=== PATIENT | male | born 1970 | race African-American/Black ===

== ENCOUNTER 2016-10-30 21:16 | Emergency (ER) | payer OTHER, MEDICAID ==
--- NOTE | 2016-10-31 00:06 | ER Document Report ---
ED General - General Chief Complaint: Leg Swelling Stated Complaint: LEG SWELLING Time Seen by Provider: 10/30/16 23:22 Notes: Patient is a 46-year-old male with a past medical history of morbid obesity, BMI of 43, hypertension, chronic tobacco abuse who presents with concerns of bilateral lower extremity edema and pain that has been present for the past 3-4 days. He denies any history of similar symptoms. He recently returned from a cruise to the [facility]. Denies any history of DVT or pulmonary embolus. Nothing improves or worsens the pain to the lower extremity which she does describe some mild, dull, throbbing pain. He has not seen his primary care doctor regarding today's concerns. Denies any associated shortness of breath or chest pain. TRAVEL OUTSIDE OF THE [place] IN LAST 30 DAYS: Yes COUNTRY TRAVELED TO/FROM: [facility] - Related Data Allergies/Adverse Reactions: No Known Allergies Allergy (Verified 10/30/16 22:05) Past Medical History - General Information source: Patient - Social History Smoking Status: Current Every Day Smoker Frequency of alcohol use: Occasional Drug Abuse: None Lives with: Spouse/Significant other Family History: Reviewed & Not Pertinent - Past Medical History Cardiac Medical History: Reports: Hx Hypertension Renal/ Medical History: Denies: Hx Peritoneal Dialysis Review of Systems - Review of Systems Notes: Constitutional: Negative for fever. HENT: Negative for sore throat. Eyes: Negative for visual changes. Cardiovascular: Negative for chest pain. Respiratory: Negative for shortness of breath. Gastrointestinal: Negative for abdominal pain, vomiting or diarrhea. Genitourinary: Negative for dysuria. Musculoskeletal: Positive for bilateral lower extremity pain and edema. Skin: Negative for rash. Neurological: Negative for headaches, weakness or numbness. 10 point ROS negative except as marked above and in HPI. Physical Exam - Vital signs Vitals: Temp Pulse Resp BP Pulse Ox 97.6 F 80 18 149/96 H 99 10/30/16 22:05 10/30/16 22:05 10/30/16 22:05 10/30/16 22:05 10/30/16 22:05 Interpretation: Hypertensive Notes: PHYSICAL EXAMINATION: GENERAL: Well-appearing, well-nourished and in no acute distress. HEAD: Atraumatic, normocephalic. EYES: Pupils equal round and reactive to light, extraocular movements intact, sclera anicteric, conjunctiva are normal. ENT: nares patent, oropharynx clear without exudates. Moist mucous membranes. NECK: Normal range of motion, supple without lymphadenopathy LUNGS: Breath sounds clear to auscultation bilaterally and equal. No wheezes rales or rhonchi. HEART: Regular rate and rhythm without murmurs ABDOMEN: Soft, nontender, normoactive bowel sounds. No guarding, no rebound. No masses appreciated. EXTREMITIES: 4+ pitting edema in the bilateral lower extremities that is equal and symmetric. Erythema bilaterally. NEUROLOGICAL: No focal neurological deficits. Moves all extremities spontaneously and on command. PSYCH: Normal mood, normal affect. SKIN: Warm, Dry, normal turgor, no rashes or lesions noted. Course - Re-evaluation Re-evalutation: 10/31/16 00:06 Patient presents with bilateral lower extremity erythema, edema and pain. Most consistent with stasis dermatitis. I do not suspect an acute cellulitis based on exam and history. Likewise acute DVT seems highly improbable given the bilateral nature and symmetric nature of the edema and erythema. Patient is morbidly obese and I discussed the need for urgent weight loss to reduce the chronic nature of the lower extremity edema and additional health complications. At this time will discharge with return precautions and follow- up recommendations. Verbal discharge instructions given a the bedside and opportunity for questions given. Medication warnings reviewed. Patient is in agreement with this plan and has verbalized understanding of return precautions and the need for primary care follow-up in the next 24-72 hours. - Vital Signs Vital signs: Temp Pulse Resp BP Pulse Ox 97.6 F 80 18 149/96 H 99 10/30/16 22:05 10/30/16 22:05 10/30/16 22:05 10/30/16 22:05 10/30/16 22:05 Discharge - Discharge Clinical Impression: Stasis dermatitis Qualifiers: Laterality: bilateral Qualified Code(s): I87.2 - Venous insufficiency (chronic ) (peripheral) Morbid obesity Qualifiers: Obesity type: due to excess calories Qualified Code(s): E66.01 - Morbid (severe ) obesity due to excess calories Condition: Good Disposition: HOME, SELF-CARE Additional Instructions: Please wear compression stockings on both your legs throughout the day to help reduce the swelling in your legs. As we discussed, focus on weight loss gradually over the next several years to reduce the need to continue to wear compression stockings and to have an overall healthier life. This will also help prevent worsening complications from your weight. Return if you develop worsening pain on one side, fever greater than 101F, vomiting, weakness, numbness or any other symptoms that are concerning to you.
[2016-10-31 06:34] VITALS: BP 147/92
== END 2016-10-31 00:15 | disposition home or self-care (01) ==
LOC: ER 21:16
DX: I87.2 Venous insufficiency (chronic) (peripheral) (principal); E66.01 Morbid (severe) obesity due to excess calories; M79.89 Other specified soft tissue disorders; Z68.41 Body mass index [BMI] 40.0-44.9, adult; I10 Essential (primary) hypertension; F17.200 Nicotine dependence, unspecified, uncomplicated
CPT/HCPCS: 99283

== ENCOUNTER 2019-01-02 18:43 | Emergency (ER) | payer OTHER, MEDICAID ==
[2019-01-02 19:01] VITALS: BP 185/121
[2019-01-02] MEDS ORDERED: OXYCODONE-ACETAMINOPHEN 5-325 MG TABLET PO ONE (19:10)
[2019-01-02] MEDS ORDERED: DIPH/PERTUSS(ACELL)/TETANUS VAC/PF 0.5 ML SYR (>=10YO) IM ONE (19:10)
--- NOTE | 2019-01-02 19:13 | ER Document Report ---
ED Medical Screen (RME) - General Chief Complaint: Laceration Stated Complaint: INJURY TO TOES OF LEFT FOOT Time Seen by Provider: 01/02/19 19:05 Mode of Arrival: Wheelchair Information source: Patient Notes: This 48-year-old male presents emergency department with left foot injury. Patient was just putting on his foot flops when he dropped a battery on his foot. Patient has laceration to the medial knee third digit. He can wiggle his toes. Complains of severe pain. Bleeding noted which has slowed down. Denies anticoagulants. Patient is very animated. I have greeted and performed a rapid initial assessment of this patient. A comprehensive ED assessment and evaluation of the patient, analysis of test results and completion of the medical decision making process will be conducted by additional ED providers. Dictation of this chart was performed using voice recognition software; therefore, there may be some unintended grammatical errors. TRAVEL OUTSIDE OF THE [place] IN LAST 30 DAYS: No COUNTRY TRAVELED TO/FROM: [facility] - Related Data Allergies/Adverse Reactions: No Known Allergies Allergy (Verified 01/02/19 18:55) Past Medical History - Social History Family history: Reviewed & Not Pertinent - Past Medical History Cardiac Medical History: Reports: Hx Hypertension Renal/ Medical History: Denies: Hx Peritoneal Dialysis Physical Exam - Vital signs Vitals: Temp Pulse Resp BP Pulse Ox 98.2 F 117 H 18 185/121 H 98 01/02/19 18:59 01/02/19 18:59 01/02/19 18:59 01/02/19 18:59 01/02/19 18:59 Course - Vital Signs Vital signs: Temp Pulse Resp BP Pulse Ox 98.2 F 117 H 18 185/121 H 98 01/02/19 18:59 01/02/19 18:59 01/02/19 18:59 01/02/19 18:59 01/02/19 18:59
--- NOTE | 2019-01-02 20:15 | RADIOLOGY REPORT (SQ) ---
EXAM DESCRIPTION: FOOT LEFT COMPLETE COMPLETED DATE/TIME: 01/02/2019 7:43 pm REASON FOR STUDY: LACERATION CRUSH INJURY 21 COMPARISON: None. NUMBER OF VIEWS: Three views. TECHNIQUE: AP, lateral and oblique radiographic images acquired of the left foot. LIMITATIONS: None. FINDINGS: MINERALIZATION: Normal. BONES: Transverse fracture of the base of the 3rd proximal phalanx. JOINTS: No effusions. SOFT TISSUES: No soft tissue swelling. No foreign body. OTHER: No other significant finding. IMPRESSION: Fracture of the 3rd proximal phalanx. TECHNICAL DOCUMENTATION: JOB ID: [id number] [employer]- All Rights Reserved Reading location - IP/workstation name: [email or web address]
== END 2019-01-02 22:05 | disposition left against medical advice (07) ==
LOC: ER 18:43
DX: S91.115A Laceration without foreign body of left lesser toe(s) without damage to nail, initial encounter (principal); W20.8XXA Other cause of strike by thrown, projected or falling object, initial encounter; I10 Essential (primary) hypertension; Z23 Encounter for immunization
CPT/HCPCS: 90471; 90715; 99281

== ENCOUNTER 2019-01-02 23:45 | Emergency (ER) | payer OTHER, MEDICAID ==
[2019-01-03] MEDS ORDERED: LIDOCAINE 2% INJ (20 MG/ML) 20 ML MDV INJ ONE (06:20)
[2019-01-03 07:03] VITALS: BP 152/107
[2019-01-03] MEDS ORDERED: OXYCODONE-ACETAMINOPHEN 5-325 MG TABLET PO ONE (07:39)
[2019-01-03] MEDS ORDERED: CEPHALEXIN 500 MG CAPSULE PO ONE (07:39)
[2019-01-03] MEDS ORDERED: SULFAMETHOXAZOLE/TRIMETHOPRIM 800-160 MG TABLET PO ONE (07:39)
--- NOTE | 2019-01-03 07:44 | ER Document Report ---
ED General - General Chief Complaint: Laceration Stated Complaint: LEFT FOOT LACERATION Time Seen by Provider: 01/03/19 06:11 Primary Care Provider: RON LOCO MD [Primary Care Provider] - Follow up as needed TRAVEL OUTSIDE OF THE [place] IN LAST 30 DAYS: No COUNTRY TRAVELED TO/FROM: [facility] Notes: Patient complains of severe patient complains of severe toe pain. He also complains of severe foot pain. This is on the left foot and left toe. He states about 5 PM yesterday he dropped a car battery on the foot. This pain is constant. Is severe. Radiates up the left leg. Is worse with movement and better with rest. He did receive a tetanus shot here last night. He states he checked and then had to go home and help some family members and now has returned. He denies any other injuries. - Related Data Allergies/Adverse Reactions: No Known Allergies Allergy (Verified 01/02/19 18:55) Past Medical History - General Information source: Patient - Social History Smoking Status: Current Every Day Smoker Frequency of alcohol use: Occasional Drug Abuse: None Family History: Reviewed & Not Pertinent Patient has suicidal ideation: No Patient has homicidal ideation: No - Past Medical History Cardiac Medical History: Reports: Hx Hypertension Renal/ Medical History: Denies: Hx Peritoneal Dialysis Review of Systems - Review of Systems Constitutional: denies: Fever, Malaise Cardiovascular: denies: Chest pain, Dyspnea Respiratory: denies: Cough, Short of breath -: Yes All other systems reviewed and negative Physical Exam - Vital signs Vitals: Temp Pulse Resp BP Pulse Ox 98.6 F 103 H 17 138/89 H 96 01/02/19 23:49 01/02/19 23:49 01/02/19 23:49 01/02/19 23:49 01/02/19 23:49 Interpretation: Normal - General General appearance: Appears well, Alert - HEENT Head: Normocephalic, Atraumatic Eyes: Normal Pupils: PERRL - Respiratory Respiratory status: No respiratory distress Chest status: Nontender Breath sounds: Normal Chest palpation: Normal - Cardiovascular Rhythm: Regular Heart sounds: Normal auscultation Murmur: No - Abdominal Inspection: Normal Distension: No distension Bowel sounds: Normal Tenderness: Nontender Organomegaly: No organomegaly - Back Back: Normal, Nontender - Extremities General upper extremity: Normal inspection, Nontender, Normal color, Normal ROM, Normal temperature General lower extremity: Normal temperature, Emma's sign - Patient's right foot is unremarkable. Patient's left foot has a large approximate 5 cm laceration that extends from the distal foot into the third toe. It is tender to palpation. The entire left foot is swollen. Patient can flex and extend all toes. He has good capillary refill in all toes of the left foot. - Neurological Neuro grossly intact: Yes Cognition: Normal Orientation: AAOx4 [place] Coma Scale Eye Opening: Spontaneous [place] Coma Scale Verbal: Oriented [place] Coma Scale Motor: Obeys Commands [place] Coma Scale Total: 15 Speech: Normal Motor strength normal: LUE, RUE, LLE, RLE Sensory: Normal - Psychological Associated symptoms: Normal affect, Normal mood - Skin Skin Temperature: Warm Skin Moisture: Dry Skin Color: Normal Course - Re-evaluation Re-evalutation: 01/03/19 07:42 X-ray shows patient to have a fracture of the base of the third phalanx. This is an open fracture. I have discussed the case with the registered land surveyor, Dr. Reynoso. I will give the patient antibiotics and she states she will see the patient on Tuesday in the office. - Vital Signs Vital signs: Temp Pulse Resp BP Pulse Ox 97.6 F 87 20 152/107 H 98 01/03/19 07:01 01/03/19 07:01 01/03/19 07:01 01/03/19 07:01 01/03/19 07:01 - Diagnostic Test Radiology reviewed: Image reviewed, Reports reviewed Procedures - Laceration/Wound Repair Left Distal Foot Time completed: 07:43 Wound length (cm): 5 Wound's Depth, Shape: Irregular Laceration pre-procedure: Betadine prep applied, Sterile drapes applied Anesthetic type: 1% Lidocaine Volume Anesthetic (mLs): 5 Wound explored: Clean, No foreign body removed Irrigated w/ Saline (mLs): 500 Wound Debrided: Moderate Wound Repaired With: Sutures Suture Size/Type: 4:0, 3:0 Number of Sutures: 13 Layer Closure?: No Post-procedure wound care: Sterile dressing applied, Splint applied Post-procedure NV exam normal: Yes Complications: No Discharge - Discharge Clinical Impression: Open fracture of phalanx of left third toe Qualifiers: Encounter type: initial encounter Qualified Code(s): S92.502B - Displaced unspecified fracture of left lesser toe(s), initial encounter for open fracture Condition: Stable Disposition: HOME, SELF-CARE Instructions: Laceration Care ([facility]), Oral Narcotic Medication ([facility]), Prophylactic Antibiotic ([facility]), Tetanus Immunization Given ([facility]) Additional Instructions: Please call Dr. Reynoso as soon as possible to arrange follow-up. She states she would like to see you this Tuesday. Prescriptions: Sulfamethoxazole/Trimethoprim [Bactrim 400-80 mg Tablet] 1 each PO BID 5 Days #10 tablet Cephalexin Monohydrate [Keflex 500 mg Capsule] 500 mg PO Q6H 5 Days capsule Oxycodone HCl/Acetaminophen [Percocet 5-325 mg Tablet] 1 - 2 tab PO Q4H PRN #15 tablet PRN Reason: Referrals: RON LOCO MD [Primary Care Provider] - Follow up as needed
== END 2019-01-03 08:16 | disposition home or self-care (01) ==
LOC: ER 23:45
DX: S92.502B Displaced unspecified fracture of left lesser toe(s), initial encounter for open fracture (principal); W20.8XXA Other cause of strike by thrown, projected or falling object, initial encounter; F17.200 Nicotine dependence, unspecified, uncomplicated
CPT/HCPCS: 12002; 99282; J3490